=== PATIENT | male | born 1950 | race Caucasian/White ===

== ENCOUNTER 2017-11-26 06:09 | Outpatient (CLI) | payer MEDICARE, BC ==
[~2017-11-26] VITALS: Ht 177.8 cm; Wt 90.9 kg
--- NOTE | ~2017-11-26 | HEMODYNAMI ---
PATIENT:LEANNE VENTURA MEDICAL RECORD: [id number] : 48 LOCATION:[facility] ADMISSION DATE: 11/26/17 Generatedon:11/26/201716:03 Patient name: LEANNE VENTURA Patient #: [id number] SSN: DO B: 1950 Date of study: 11/26/2017 Page: Of Hemodynamic Procedure Report Patient Data Patient Demographics Procedure consent was obtained First Name: LEANNE Gender: Male Last Name: LORENZO : 1950 Patient #: [id number] Age: 67 year(s) Race: Unknown Additional ID: [id number] Contact details [address]: [address] [place] [address] State: [place] City: [place] Zip code: [address] Past Medical History Allergies: No known allergies Admission Admission Data Admission Date: 11/26/2017 Admission Time: 6:09 Height (in.): 5.1 BSA: 0.31 (m2) Height (cm.): 12.95 BMI: 5460.21 (kg/m2) Weight (lbs.): 202 Weight (kg.): 91.63 Lab Results Lab Result Date: 11/26/2017 Lab Result Time: 0:00 Biochemistry Name Units Result Min Max BUN mg/dl 16 --(---*)-- 7 18 Creatinine mg/dl 1.2 --(---*)-- 0.6 1.3 CBC Name Units Result Min Max Hemoglobin g/dl 14.6 --(-*--)-- 13.5 17.5 Procedure Procedure Types Cath Procedure Diagnostic Procedure LHC LHC w/Coronaries Miscellaneous Procedures Moderate Sedation up to 30 minutes Procedure Description Procedure Date Procedure Date: 11/26/2017 Procedure Start Time: 15:27 Procedure End Time: 16:03 Procedure Staff Name Function Yony Gongora MD Performing Physician Kizzy Boggs RT Monitor Pita Riddle RT Scrub Susan Banuelos RN Nurse Procedure Data Cath Procedure Fluoroscopy Diagnostic fluoroscopy Total fluoroscopy Time: 6.4 time: 6.4 min min Diagnostic fluoroscopy Total fluoroscopy dose: 885 dose: 885 mGy mGy Contrast Material Contrast Material Type Amount (ml) Isovue 300 78 Entry Location Entry Primary Successful Side Size Upsize Upsize Entry Closure Romero ccessful Closure Location (Fr) 1 (Fr) 2 (Fr) Remarks Device Remarks Radial Right 6 Fr Mechanical TR BAND artery Short Compression Femoral Right 5 Fr artery Estimated blood loss: 5 ml Diagnostic catheters Device Type Used For End Catheter Placement DIAGNOSTIC Adama 110cm Procedure 5Fr catheter ([id number]) MULTIPACK JL 4.0 5Fr Procedure catheter MULTIPACK 3DRC 5Fr Procedure catheter MULTIPACK Pigtail 5 Fr Procedure catheter DIAGNOSTIC IMT 5Fr Procedure Catheter ([id number]) MULTIPACK JL 4.0 5Fr Procedure catheter Procedure Complications No complications Procedure Medications Medication Administration Route Dosage 0.9% NaCl I.V. 100 ml/hr Oxygen NC 2 l/min Lidocaine 2% added to field 20 Heparin Flush Bag added to field 2 bags (1000units/500ml NS) Radial Cocktail added to field 1 syringe (Verapomil 2mg/Nitro 400mcg/Heparin 1500units) Fentanyl I.V. 50 mcg Versed I.V. 1 mg Versed I.V. 1 mg Fentanyl I.V. 50 mcg 0.9% NaCl I.V. bolus 250 ml Nitroglycerin IC/IA I.C. 50 mcg Hemodynamics Rest BSA: 0.31 (m2) HGB: 14.6 (g/dl) O2 Consumption: Estimated: 34.64 (ml/min) O2 Con sumption indexed: Estimated:111.74 (ml/min/m) Heart Rate: 59 (bpm) Pressure Samples Time Site Value (mmHg) Purpose Heart Use Rate(bpm) 15:40 LV 105/1,19 Snapshot 68 15:41 AO 109/56(72) Pullback 70 Gradients Valve Time Site Site 2 Mean SEP/DFP Peak To Heart Use 1 (mmHg) (sec/min) Peak Rate (mmHg) (bpm) Aortic 15:41 LV AO 7 18 70 109/56(72) Calculations Valve P-P Mean Valve Index Valve Source Name Gradient Area Flow (cm2) Aortic 7 7 Snapshots Pre Cath Intra NCS Post Cath Vital Signs Time Heart Resp SPO2 NIBP (mmHg) Rhythm Pain Sedation Rate (ipm) (%) Status Level (bpm) 15:14:23 54 16 98 137/74(98) NSR 0 (11) 10(A) , No pain 15:18:39 52 14 96 139/77(113) NSR 0 (11) 10(A) , No pain 15:22:57 56 16 95 129/69(92) NSR 0 (11) 10(A) , No pain 15:27:15 59 18 95 97/50(76) NSR 0 (11) 9(A) , No pain 15:31:22 72 16 96 73/49(62) NSR 0 (11) 9(A) , No pain 15:35:23 67 14 97 74/43(56) NSR 0 (11) 9(A) , No pain 15:40:12 65 16 95 115/56(84) NSR 0 (11) 10(A) , No pain 15:44:20 67 15 96 107/64(82) NSR 0 (11) 9(A) , No pain 15:48:28 66 14 96 112/64(89) NSR 0 (11) 9(A) , No pain 15:52:35 70 18 97 132/68(92) NSR 0 (11) 10(A) , No pain 15:56:51 76 21 96 121/71(85) NSR 0 (11) 10(A) , No pain 16:01:05 66 18 97 120/66(85) NSR 0 (11) 10(A) , No pain Medications Time Medication Route Dose Verified Delivered Reason Notes Effectiveness by by 15:13:38 0.9% NaCl I.V. 100ml/hr Yony Susan used for Rolan Banuelos commercial census taker 15:13:51 Oxygen NC 2 l/min Yony Susan Per Rolan Banuelos RN physician 15:14:00 Lidocaine 2% added 20ml Yony Yony for local to vial Rolan Gongora MD anesthetic field 15:14:07 Heparin Flush added 2 bags Yony Yony used for Bag to Rolan Gongora MD procedure (1000units/500ml field NS) 15:14:18 Radial Cocktail added 1 Yony Yony for (Verapomil to syringe Rolan Gongora MD vasodilation 2mg/Nitro field 400mcg/Heparin 1500units) 15:26:04 Fentanyl I.V. 50 mcg Yony Susan for sedation Rolan Banuelos RN 15:26:13 Versed I.V. 1 mg Yony Susan for sedation Rolan Banuelos RN 15:32:20 Versed I.V. 1 mg Yony Susan for sedation Rolan Banuelos RN 15:32:33 Fentanyl I.V. 50 mcg Yony Susan for sedation Rolan Banuelos RN 15:34:13 0.9% NaCl I.V. 250ml Yony Susan For bolus Rolan Banuelos RN hypotension 15:53:47 Nitroglycerin I.C. 50 mcg Yony Yony for IC/IA Rolan Gongora MD vasodilation Procedure Log Time Note 15:00:22 Pita Riddle RT(R) sent for patient. Start room use. 15:00:23 Time tracking: Regular hours 15:00:27 Plan of Care:Hemodynamics will remain stable., Cardiac rhythm will remain stable., Comfort level will be maintained., Respiratory function will remain adequate., Patient/ family verbilizes understanding of procedure., Procedure tolerated without complication., Recovers from procedure without complications.. 15:01:29 Patient Height : 5.1 inches 15:01:33 Patient Weight : 202 lbs 15:08:06 Patient received from Pre/Post Procedure Room to [facility] 2 Alert and oriented. Tansferred to table in Supine position. 15:08:07 Warm blankets applied, and reba hugger turned on for patient comfort. 15:08:08 Correct patient and procedure confirmed by team. 15:08:09 Signed procedure consent form obtained from patient. 15:08:11 ECG and BP/O2 sat monitors applied to patient. 15:13:22 Vital chart was started 15:13:38 0.9% NaCl 100ml/hr I.V. was administered by Susan Banuelos RN; used for procedure; 15:13:51 Oxygen 2 l/min NC was administered by Susan Banuelos RN; Per physician; 15:14:00 Lidocaine 2% 20ml vial added to field was administered by Yony Gongora MD; for local anesthetic; 15:14:07 Heparin Flush Bag (1000units/500ml NS) 2 bags added to field was administered by Yoyn Gongora MD; used for procedure; 15:14:18 Radial Cocktail (Verapomil 2mg/Nitro 400mcg/Heparin 1500units) 1 syringe added to field was administered by Yony Gongora MD; for vasodilation; 15:16:30 Baseline sample Acquired. 15:16:37 Rhythm: sinus bradycardia 15:16:39 Full Disclosure recording started 15:16:47 H&P Date Dictated: 11/25/2017 Within 30 days and on chart., H&P Addendum completed by physician on day of procedure. (MUST COMPLETE FOR ALL OUTPATIENTS). 15:16:48 Pre-procedure instructions explained to patient. 15:16:48 Pre-op teaching completed and patient verbalized understanding. 15:16:51 Family in patients room. 15:16:53 Patient NPO since Midnight. 15:16:59 Patient allergic to No known allergies 15:17:02 Is the patient allergic to Iodine/contrast media? No. 15:17:14 Is patient on blood thinner?No 15:17:19 Patient diabetic? No. 15:17:22 Previous problem with sedation/anesthesia? No ? 15:17:25 Snore? Yes 15:17:26 Sleep apnea? Yes 15:17:27 Deviated septum? No 15:17:29 Opens mouth fully? Yes 15:17:30 Sticks out tongue? Yes 15:17:37 Airway obstruction? No ? 15:17:50 Dentures? Yes DENTURES TIGHT 15:17:54 Modified Benson's test Ulnar < 7 seconds 15:17:57 Patient pain scale 0/10 ?. 15:18:11 IV patent on arrival in left hand with 0.9% NaCl at [facility]. 15:18:28 Lab results completed and on chart. 15:18:31 Right Radial & Right Groin area was prepped with chlora-prep and draped in sterile fashion 15:18:33 Alarms reviewed by R. N. 15:18:33 Sharps counted by scrub and verified by R.N. 15:19:32 Use device set Radial Dx or PCI 15:19:33 ACIST Syringe (73328) opened to sterile field. 15:19:36 ACIST Manifold (70992) opened to sterile field. 15:19:36 ACIST Hand Control (45161) opened to sterile field. 15:19:37 Tegaderm 4 x 4 (1626W) opened to sterile field. 15:19:53 NEEDLE Cook 21G 4cm Radial ([id number]) opened to sterile field. 15:19:55 Medline Cath Pack ([id number]) opened to sterile field. 15:19:56 Bag Decanter (2002) opened to sterile field. 15:19:57 SHEATH 6FR Slender ([id number]) opened to sterile field. 15:19:58 DIAGNOSTIC WIRE .035 260cm J wire (006374) opened to sterile field. 15::45 Lab Result : Creatinine 1.2 mg/dl 15:: Lab Result : BUN 16 mg/dl 15:: Lab Result : Hemoglobin 14.6 g/dl 15:: --------ALL STOP TIME OUT------ :: Final Timeout: patient, procedure, and site verified with staff and physician. All members of the team are in agreement. 15:25:06 Right Radial & Right Groin site verified by team. 15:25: Physical assessment completed. ASA score P 2 - A patient with mild systemic disease as per Yony Gongora MD. 15:25:12 Sedation plan: IV Moderate Sedation Medication:Versed, Fentanyl 15::04 Fentanyl 50 mcg I.V. was administered by Susan Banuelos RN; for sedation; 15::13 Versed 1 mg I.V. was administered by Susan Banuelos RN; for sedation; 15:27:02 Procedure started. 15:27:33 Local anesthetic to right radial artery with Lidocaine 2% by Yony Gongora MD.INITIAL ACCESS ONLY 15:28:22 Zero performed for pressure channel P1 15:28:47 A 6 Fr Short sheath was inserted into the Right Radial artery 15:29:09 A DIAGNOSTIC Adama 110cm 5Fr catheter (685846) was advanced over the wire and used for Procedure. 15:31:19 Catheter removed. 15:31:36 UNABLE TO ADVANCE CATHETER. WILL GO FEMORAL 15:31:45 SHEATH 5FR [place] (JQW808) opened to sterile field. 15:31:52 NEEDLE [place] 18G 7cm Percutaneous Entry needle (H52213) opened to sterile field. 15:32:03 Use device set Femoral Dx 15:32:16 DIAGNOSTIC Multipack 5Fr catheter set (TZ8765) opened to sterile field. 15:32:20 Versed 1 mg I.V. was administered by Susan Banuelos RN; for sedation; 15:32:33 Fentanyl 50 mcg I.V. was administered by Susan Banuelos RN; for sedation; 15:33:09 Local anesthetic to right femoral artery with Lidocaine 2% by Yony Gongora MD.ADDITIONAL ACCESS 15:33:35 A 5 Fr sheath was inserted into the Right Femoral artery 15:34:13 0.9% NaCl 250ml I.V. bolus was administered by Susan Banuelos RN; For hypotension; 15:34:25 A MULTIPACK JL 4.0 5Fr catheter was advanced over the wire and used for Procedure. 15:35:00 LCA angiography performed. 15:37:14 Catheter removed. 15:37:39 A MULTIPACK 3DRC 5Fr catheter was advanced over the wire and used for Procedure. 15:38:48 RCA angiography performed. 15:39:06 Catheter removed. 15:39:24 A MULTIPACK Pigtail 5 Fr catheter was advanced over the wire and used for Procedure. 15:40:17 LV gram done using WOODY 15:40:22 Injector settings: Ml/sec: 10, Volume: 20, 15:41:30 EF : 60 % 15:41:35 LV hemodynamics recorded. 15:41:47 Catheter removed. 15:43:11 A DIAGNOSTIC IMT 5Fr Catheter ([id number]) was advanced over the wire and used for Procedure. 15:44:21 WEBSTER ANGIOGRAPHY VISUALIZED WITH IMT CATHETER 15:44:49 Catheter removed. 15:45:03 EXOSEAL 5Fr (EX500) opened to sterile field. 15:45:08 TR BAND Standard ([id number]) opened to sterile field. 15:51:31 A MULTIPACK JL 4.0 5Fr catheter was advanced over the wire and used for Procedure. 15:53:47 Nitroglycerin IC/IA 50 mcg I.C. was administered by Yony Gongora MD; for vasodilation; 15:55:52 Catheter removed. 15:57:03 Sheath removed intact; hemostasis achieved with to the Right Femoral artery. 15:57:22 Sheath removed intact; hemostasis achieved with Mechanical Compression to the Right Radial artery. 15:57:25 Procedure ended.(Physican Out) 15:57:29 Fluoroscopy time 06.40 minutes. 15:57:36 Fluoroscopy dose: 885 mGy 15:57:36 Flurop Dose total: 885 15:57:58 Contrast amount:Isovue 300 78ml. 15:57:59 Sharps counted by scrub and verified by R.N. 15:58:03 TR band inflated with 10cc of air. 15:58:08 Insertion/operative site no bleeding no hematoma. 15:58:30 Post-op/insertion site Right Femoral artery dressed using a 4 x 4 and Tegaderm. 15:58:36 Post right femoral artery:stable, soft, clean and dry 15:58:45 Post-procedure physical assessment completed. ASA score P 2 - A patient with mild systemic disease as per Yony Gongora MD. 15:58:48 Post procedure rhythm: unchanged. 15:58:51 Estimated blood loss: 5 ml 15:58:52 Post procedure instruction explained to patient.Patient verbalizes understanding. 15:58:53 Patient needs reinforcement of post procedure teaching. 15:59:03 Procedure type changed to Cath procedure, Diagnostic procedure, LHC, LHC w/Coronaries, Miscellaneous Procedures, Moderate Sedation up to 30 minutes 15:59:58 Procedure and supply charges have been captured, reviewed, submitted and are correct. 16:00:01 Procedure Complication : No complications 16:02:12 Vital chart was stopped 16:02:12 See physician's report for complete and final results. 16:02:16 Report given to Pre/Post Procedure Room. 16:02:19 Patient transfered to Pre/Post Procedure Room with Bed. 16:03:12 Procedure ended. 16:03:12 Full Disclosure recording stopped 16:03:21 End room use (Document Last) Device Usage Item Name Manufacture Quantity Catalog Number Hospital Part Current Mini mal Lot# / Charge Number Stock Stock Serial# Code ACIST Acist 1 84595 370339 441028 703130 20 Syringe Medical (66388) Systems Inc ACIST Acist 1 44767 239853 597411 653647 5 Manifold Medical (45378) Systems Inc ACIST Hand Acist 1 35640 395852 700030 739849 5 Control Medical (92256) Systems Inc Tegaderm 4 x 3M 1 1626W 049513 326355 556886 5 4 (1626W) NEEDLE Cook Cook Medical 1 E93509 981418 178839 033790 5 21G 4cm Radial (W69309) Medline Cath Cardinal 1 [id number] 922778 92624 011152 5 Pack Health ([id number]) Bag Decanter Microtek 1 2001S 025410 56780 343607 5 () Medical Inc. SHEATH 6FR Terumo 1 [id number] 240677 330777 634031 40 Slender ([id number]) DIAGNOSTIC St Sukhdev 1 423033 323916 317949 494500 30 WIRE .035 260cm J wire (247441) DIAGNOSTIC Terumo 1 40-5023 308864 995846 503916 5 Adama 110cm 5Fr catheter (788532) SHEATH 5FR Terumo 1 ORZ832 870783 239694 704778 40 [place] (IXO348) NEEDLE Cook [place] Medical 1 Z00273 441188 76071 156659 5 18G 7cm Percutaneous Entry needle (O26604) DIAGNOSTIC Cardinal 1 PM8880 392434 71650 819461 30 Multipack Health 5Fr catheter set (DI3523) MULTIPACK JL Cardinal 1 614417 5 4.0 5Fr Health catheter MULTIPACK Cardinal 1 818768 5 3DRC 5Fr Health catheter MULTIPACK Cardinal 1 788762 5 Pigtail 5 Fr Health catheter DIAGNOSTIC [place] 1 [id number] 834404 060555 75595 5 IMT 5Fr Scientific Catheter ([id number]) EXOSEAL 5Fr Cardinal 1 EX500 648263 796589 164711 10 (EX500) Health TR BAND Terumo 1 [id number] 525088 240026 387074 40 Standard (IBQ52MML) Signature Audit [place] [facility] Time Signature Unsigned Intra-Procedure 11/26/2017 Kizzy Boggs 4:03:50 PM RT(R) Signatures Monitor : Kizzy Boggs Signature : RT Date : Time : [facility] [address] [place] [address]
[2017-11-26] MEDS ORDERED: CELEXA40 MG PO (06:15)
[2017-11-26] MEDS ORDERED: PRAVACHOL40 MG PO (06:15)
[2017-11-26] MEDS ORDERED: WELLBUTRIN XL150 M1 PO (06:16)
[2017-11-26] MEDS ORDERED: FLOMAX0.4 MG PO (06:16)
[2017-11-26] MEDS ORDERED: OMEPRAZOLE20 M1 PO (06:16)
[2017-11-26] MEDS ORDERED: AVODART0.5 MG PO (06:16)
[2017-11-26 06:35] VITALS: BP 142/76; Ht 177.8 cm; Wt 90.9 kg
[2017-11-26 06:43] LABS: ANION GAP 11.1 mmol/L (8-16); CALCIUM 8.7 mg/dL (8.5-10.1); CREATININE - SERUM 1.2 mg/dL (0.6-1.3); POTASSIUM - SERUM 4.1 mmol/L (3.5-5.1)
[2017-11-26 06:47] LABS: BASOPHILS 0.3 % (0-2); EOSINOPHILS 1.5 % (0-7); HEMATOCRIT 43.6 % (42.0-54.0); HEMOGLOBIN 14.6 g/dL (13.5-17.5); IMMATURE GRANULOCYTES 0.5 % (0-5); LYMPHOCYTES 21.9 % (15-50); MCH 32.4 pg (26.0-34.0); MCHC 33.5 g/dL (31.0-37.0); MCV 96.9 fL (80.0-100.0); MEAN PLATELET VOLUME 11.2 fL (7.4-10.4); MONOCYTES 10.2 % (2-11); NEUTROPHILS 65.6 % (40-80); PLATELET COUNT 222 10x3/uL (130-400); RDW 12.3 % (11.5-14.5); WBC 6.7 10x3/uL (4.8-10.8)
== END 2017-11-26 18:27 | disposition home or self-care (01) ==
LOC: D.CATH 06:09
PROVIDERS: Internal Medicine Cardiovascular Disease
DX: I20.0 Unstable angina (principal); R06.02 Shortness of breath; R07.9 Chest pain, unspecified; Z01.812 Encounter for preprocedural laboratory examination

== ENCOUNTER → 2017-11-30 15:39 | Outpatient (CLI) | payer MEDICARE, BC ==
[2017-11-26 06:35] VITALS: BMI 28.7
[~2017-11-30 15:39] MED LIST: AVODART0.5 MG PO; CELEXA40 MG PO; CORDARONE200 MG PO; FLOMAX0.4 MG PO; HEMOCYTE PLUS C1 CAP PO; HYDROCODONE-APA1 TAB PO; LOPRESSOR25 MG PO; OMEPRAZOLE20 M1 PO; PRAVACHOL40 MG PO; WELLBUTRIN XL150 M1 PO
[2017-12-02 07:25] LABS: HEPATITIS C ANTIBODY 0.1 (0.0-0.9)
== END | disposition home or self-care (01) ==
LOC: D.US 15:30
PROVIDERS: Internal Medicine Cardiovascular Disease
DX: R09.89 Other specified symptoms and signs involving the circulatory and respiratory systems (principal); Z01.812 Encounter for preprocedural laboratory examination; Z01.810 Encounter for preprocedural cardiovascular examination

== ENCOUNTER 2017-12-07 05:00 | Inpatient (IN) | payer MEDICARE, BC ==
[2017-12-04 10:33] LABS: BASOPHILS 0.2 % (0-2); EOSINOPHILS 0.9 % (0-7); HEMATOCRIT 45.6 % (42.0-54.0); HEMOGLOBIN 15.5 g/dL (13.5-17.5); IMMATURE GRANULOCYTES 0.3 % (0-5); LYMPHOCYTES 23.5 % (15-50); MCH 32.7 pg (26.0-34.0); MCV 96.2 fL (80.0-100.0); MEAN PLATELET VOLUME 11.1 fL (7.4-10.4); MONOCYTES 9.7 % (2-11); NEUTROPHILS 65.4 % (40-80); PLATELET COUNT 237 10x3/uL (130-400); RBC 4.74 10x6/uL (4.20-6.10); WBC 6.6 10x3/uL (4.8-10.8)
[2017-12-04 10:42] LABS: INR 0.98 (0.85-1.17); PROTIME 12.6 SECONDS (11.6-15.0)
[2017-12-04 10:43] LABS: APTT 33.1 SECONDS (22.8-39.4)
[2017-12-04 10:46] LABS: APPEARANCE CLEAR (CLEAR); COLOR YELLOW (YELLOW)
[2017-12-04 10:47] LABS: BILIRUBIN NEGATIVE (NEGATIVE); GLUCOSE NEGATIVE (NEGATIVE); KETONE NEGATIVE (NEGATIVE); NITRITE NEGATIVE (NEGATIVE); PROTEIN NEGATIVE (NEGATIVE); UROBILINOGEN NORMAL (NORMAL)
[2017-12-04 10:56] LABS: ALBUMIN 3.5 g/dL (3.4-5.0); ANION GAP 11.9 mmol/L (8-16); BILIRUBIN - TOTAL 0.46 mg/dL (0.2-1.3); CALCIUM 8.8 mg/dL (8.5-10.1); CARBON DIOXIDE 27.3 mmol/L (21.0-32.0); CREATININE - SERUM 1.2 mg/dL (0.6-1.3); PHOSPHOROUS 2.6 mg/dL (2.5-4.9); POTASSIUM - SERUM 4.2 mmol/L (3.5-5.1); PROTEIN - SERUM 7.3 g/dL (6.4-8.2); THYROID STIMULATING HORMONE 1.23 uIU/mL (0.36-3.74); URIC ACID 5.8 mg/dL (2.6-7.2)
[2017-12-04 10:57] LABS: HEMOGLOBIN A1C 6.1 % (4.8-6.0)
[2017-12-04 12:21] LABS: T4 THYROXIN - FREE 0.73 ng/dL (0.76-1.46)
[2017-12-04 13:10] LABS: COLD SCREEN @ 4 DEGREES NEGATIVE (NEGATIVE); COLD SCREEN ROOM TEMP NEGATIVE (NEGATIVE)
[2017-12-07] VITALS (41 sets, daily range): BP systolic 90–153; BP diastolic 45–76; BMI 28.9; BMI 30.4
[~2017-12-07] VITALS: Ht 177.8 cm; Wt 93.9 kg
--- NOTE | ~2017-12-07 | HP ---
PATIENT: LEANNE VENTURA MEDICAL RECORD: [id number] ACCOUNT: [id number] LOCATION:[facility] : 48 ADMISSION DATE: 12/07/17 HISTORY AND PHYSICAL EXAMINATION NameLEANNE VENTURA (67yo, M) ID# [id number]. Date/Time11/30/2017 02:44PREXV1949Service Dept.NPP_[facility] ClinicProviderEDMAIDA KENT MDInsuranceMed Primary[place] Insurance # : [id number] Referring Provider Name : SARA ESTRADA Employer Name : RETIRED Med Secondary[place]) Insurance # : [id number] Policy/Group # : [id number] Employer Name : RETIRED Prescription: DSTPSDIR - Member is eligible. Chief Complaint Coronary artery disease eval for CABG Patient's Care Team Referring Provider (): SARA ESTRADA: [address] [place] [address], , Insurance Examining Clerk: MADDI JACOBS: [address] [place] [address], , Patient's Pharm[facility] ([facility] [address] [facility] [address], , Vitals BP:142/92 sitting L arm 11/30/2017 02:17 pm 148/86 sitting R arm 11/30/2017 02:18 pmBP Cuff Size:adult 11/30/2017 02:17 pm adult 11/30/2017 02:18 pmHR:64,reg 11/30/2017 02:18 pmHt:5 ft 10 in 11/30/2017 02:19 pmWt:201 lbs 11/30/2017 02:20 pmNotes:fatigue is biggest complaint 11/30/2017 02:20 pmBMI:28.8 11/30/2017 02:20 pmAllergies Reviewed Allergies NKDAMedications Reviewed Medications buPROPion HCl XL 150 mg 24 hr tablet, extended release TAKE ONE TABLET BY MOUTH ONCE DAILY10/27/17 filledsurescriptscitalopram 40 mg tablet TAKE ONE TABLET BY MOUTH EVERY DAY09/28/17 filledsurescriptsJalyn 0.5 mg-0.4 mg capsule, extended release Take 1 capsule(s) every day by oral route.11/30[facility] Take 1 tablet(s) every day by oral route.11/30/17 [facility] WilsonPriLOSEC 20 mg capsule,delayed release Take 1 capsule(s) every day by oral route.11/30/17 [facility] WilsonProblems Reviewed Problems Coronary arteriosclerosis - Onset: 11/30/2017 Family History Discussed Family History Mother- Cerebrovascular accidentSocial History Discussed Social History Cardiology HISTORY AND PHYSICAL [id number] LEANNE VENTURA Family history of heart disease?: N Smoking Status: Former smoker (Notes: quit 1969) High Cholesterol: Y High blood pressure: N Overweight: Y Obese: N Diet: Regular Surgical History Reviewed Surgical History cholecystectomy, tonsillectomy and adenoidectomy, vasectomy, trigger finger release, wrist surgery Past Medical History Discussed Past Medical History Blurred Vision: Y Chest Pain: Y Circulation Problems: Y Coronary Artery Disease: Y Depression: Y High Blood Pressure: Y Hyperlipidemia: Y Irregular heart beat: Y Shortness of Breath: Y Notes: sleep apnea. kidney/bladder/prostate problems. Documents for Discussion N/A Screening None recorded. HPI Coronary Artery Disease F/U Reported by patient. Severity: symptoms are worsening; chest discomfort with household activities/yard work Context: non-smoker Associated Symptoms: fatigue coronary atherosclerosis and angina pectoris ROS Patient reports exercise intolerance but reports no fever, no night sweats, no significant weight gain, and no significant weight loss. He reports no dry eyes, no ir ritation, and no vision change. He reports no difficulty hearing and no ear pain. He reports no frequent nosebleeds and no nose/sinus problems. He reports no sore throat, no bleeding gums, no snoring, no dry mouth, no mouth ulcers, no oral abnormalities, a nd no teeth problems. He reports no jugular vein distension and no swollen glands. He reports no chest pain, no arm pain on exertion, no shortness of breath when walking, no shortness of breath when lying down, no palpitations, and no known heart murmur. H e reports no cough, no wheezing, no shortness of breath, and no coughing up blood. He reports no abdominal pain, no vomiting, normal appetite, no diarrhea, not vomiting blood, no nausea, and no constipation. He reports no incontinence, no difficulty urina t ing, no hematuria, and no increased frequency. He reports no muscle aches, no muscle weakness, no arthralgias/joint pain, no back pain, and no swelling in the extremities. He reports no abnormal mole, no jaundice, and no rashes. He reports no loss of cons c iousness, no weakness, no numbness, no seizures, no dizziness, and no headaches. He reports no depression, no sleep disturbances, feeling safe in relationship, and no alcohol abuse. He reports no fatigue. He reports no swollen glands and no bruising. He r eports no runny nose, no sinus pressure, no itching, no hives, and no frequent sneezing. HISTORY AND PHYSICAL [id number] LEANNE VENTURA as noted in the HPI Physical Exam Patient is a 67-year-old male. Constitutional: General Appearance well nourished and developed and healthy-appearing. Level of Distress NAD. Ambulation ambulating normally. Cardiovascular: Apical Impulse not displaced or no thrill. Heart Auscultation normal s1 and s2; no murmurs, rubs, or gallops; and RRR. Arterial Pulses no abdominal aorta bruits, femoral bruits, or popliteal bruits and 2+ bilateral, carotid 2+ bilateral, femoral 2+ bilateral, popliteal 2+ bilateral, and dorsalis pedis 2+ bilateral. Edema no edema or varicosities. Lungs: Repiratory Effort no dyspnea. Percussion no hyperresonance or dullness or flatness. Auscultation no wheezing, rhonchi, or rales / crackles and breathing sounds normal, good air movement, and CTA except as noted. Abdomen: Bowl Sounds normal. Inspection and Palpation no tend erness, guarding, masses, or rebound tenderness and soft and non-distended. Liver non-tender and no hepatomegaly. Spleen non-tender and no splenomegaly. Hernia none palpable. Musculoskeletal System: Gait And Stance normal gait and stance. Digits and Nails normal nails and no cyanosis. Neurologic: Cranial Nerves grossly intact. Reflexes DTRs 2+ bilaterally throughout. Sensation grossly intact. Lymph Nodes: Lymph Nodes no cervical LAD, supraclavicular LAD, axillary LAD, or inguinal LAD. Eyes: Lids and Conjunctivae no discharge or pallor and non-injected. Pupils PERRLA. Cornea grossly intact. EOM EOMI. Lens clear. Sclerae non-icteric. Neck: Neck no masses, enlarged lymph nodes, or carotid bruits and supple and trachea midline. Thyroid no enlargement or nodules and non-tender. Skin: Inspection and Palpation no rash, lesions, ulcers, jaundice, or abnormal nevi. Assessment / Plan left main coronary artery atherosclerosis with angina 1. Coronary arteriosclerosis I25.10: Atherosclerotic heart disease of [place] coronary artery without angina pectoris Discussion Notes I have discussed the patient's disease process with him in detail as well as the alternative methods of treatment we discussed coronary artery bypass including the expected benefits and risk which included bleeding, infection, stroke, , and they imponderables. He understands all of the above and wishes to proceed with planned surgery HISTORY AND PHYSICAL [id number] LEANNE VENTURA EDWARD MD at 1319 CC: [id number] DICTATION DATE: 11/30/17 1400 DISTRIBUTION SYSTEMS SUPERINTENDENT: LIBRADO 12/01/17 0813 PRE [address] [place] [address] [place] [address]
--- NOTE | ~2017-12-07 | OP ---
PATIENT NAME: LEANNE VENTURA MEDICAL RECORD: [id number] :48 LOCATION:[facility].CV05 ADMISSION DATE:12/07/17 SURGEON: ROLY HOPKINS MD DATE OF OPERATION: 12/07/2017 SURGEON: Roly Hopkins MD ANESTHESIA: General endotracheal, Spencer Rose MD OPERATION PERFORMED: Coronary artery bypass; 1. Left internal thoracic to left anterior descending. 2. Reverse saphenous vein graft to the first diagonal. 3. Reverse saphenous vein graft to the obtuse marginal 1 coronary artery. PREOPERATIVE DIAGNOSES: Angina pectoris, left main coronary artery lesion. POSTOPERATIVE DIAGNOSES: Angina pectoris, left main coronary artery lesion. INDICATION FOR OPERATION: Angina pectoris. FINDINGS OF THE OPERATION: The left internal thoracic and greater saphenous vein were of good quality for grafting. The target vessels were also of good quality for grafting. ESTIMATED BLOOD LOSS: Cell Saver was used. DESCRIPTION OF PROCEDURE: After informed consent, adequate preoperative medication, and evaluation, the patient was brought to the operating room and placed on the table in supine position. After induction of general endotracheal anesthesia and application of appropriate monitoring devices, chest, neck, abdomen, and both legs were prepped and draped in sterile field utilizing Betadine scrub, alcohol, and Betadine solution. Betadine-impregnated drape was also used. Saphenous vein was harvested from right thigh and prepared for reverse saphenous vein graft. The leg was closed over drains utilizing 3-0 Vicryl and skin maria isabel. A median sternotomy incision was used and dissection was carried down to the fascia. Hemostasis was maintained with electrocautery. Sternum was divided. Innominate vein was identified and protected. Left internal thoracic was taken down and prepared for grafting. The patient was given a calculated dose of heparin, cannulated in the standard fashion utilizing one aortic, one 2-stage cannula in the atrium and the inferior vena cava. The patient was placed on cardiopulmonary bypass, cooled to 27 degrees centigrade. A crossclamp was placed just proximal to the aortic cannula and the patient was given cardioplegic solution through the aortic root. The patient was given a warm induction and cold maintenance. The patient was given cold intermittent cardioplegic solution throughout the procedure through the grafts, through the root, or combination of both. The first vessel to be grafted was the obtuse marginal 1. It was grafted end-to-side utilizing a running 7-0 Prolene suture. Graft was measured back to the aorta and the proximal anastomosis was fashioned utilizing running 6-0 Prolene suture. Next, the first diagonal was grafted end-to-side utilizing running 8-0 Prolene suture. Graft was measured back to the aorta and a proximal anastomosis was fashioned utilizing running 6-0 Prolene suture. Next, the left internal thoracic was brought through a hole in the pericardium OPERATIVE REPORT [id number] LEANNE VENTURA and sutured left anterior descending end-to-side utilizing a running 8-0 Prolene suture. Pedicle was attached to epicardium with 6-0 Prolene suture. All maneuvers to remove trapped air were performed. The patient was given warm cardioplegic reperfusion and controlled reperfusion. The patient was rewarmed to 37 degrees centigrade. Two atrial and two ventricular pacing wires were placed on the heart and brought out through the epigastric area. The patient was weaned off cardiopulmonary bypass. After being stable off bypass, he was given calculated dose of protamine to reverse the heparin. Hemostasis was achieved. A #40 right angle and #36 chest tubes were brought in through the epigastric area and placed in mediastinum. Chest was again irrigated. Instrument count and sponge count were correct times 2. Chest was closed in layers utilizing #7 wire on sternum, #2 Vicryl on linea alba and pectoralis fascia. Subcutaneous tissue was approximated with 3-0 Vicryl and skin was approximated with 3-0 subcuticular Vicryl. Sterile dressings were applied. The patient tolerated the procedure well and was transferred to cardiovascular recovery in stable condition. TRANSINT:[id number] Voice Confirmation ID: [id number] DOCUMENT ID: [id number] ROLY HOPKINS MD at 1117 CC: [id number] DICTATION DATE: 12/07/17 1418 DIE DESIGNER: 12/07/17 1814 [facility] [place] [id number] [place] [id number]
--- NOTE | ~2017-12-07 | TEE ---
PATIENT:LEANNE VENTURA MEDICAL RECORD: [id number] LOCATION:[place] [address] AGE OF PATIENT: 67 ADMISSION DATE: 12/07/17 SEX: M REFERRING PHYSICIAN: INTERPRETING PHYSICIAN: OSBALDO AMAYA MD TRANSESOPHAGEAL ECHOCARDIOGRAM CHIKA CHARGE Y INDICATIONS: CABG PREMEDICATIONS: PATIENT'S RESPONSE PROCEDURE DOPPLER MEASUREMENTS: LVIT LA PA RA LVOT RVOT Asc. Ao AV Gradient Peak AV Mean AV Area MV Gradient Peak MV Mean MV Area INTERPRETATION: LVd: 5.6 cm LVs: 3.9 cm Doppler: 2-D: COLOR FLOW DOPPLER NORMAL SALINE STUDY: MISCELLANOUS: DIAGNOSIS: PLAN: Senior Technical Support Analyst:2 Dr. [employer] Rep: Meir SAGE COMMENTS: DATE OF SERVICE: 12/07/2017 Transesophageal echo evaluation of valvular structures during bypass surgery. FINDINGS: 1. Left ventricular chamber size is within normal limits. Left ventricular systolic function is normal. Overall ejection fraction estimated at 55%. 2. Left atrium, right atrium, and right ventricular chamber sizes are within normal limits. TRANSESOPHAGEAL ECHOCARDIOGRAM REPORT [id number] LEANNE VENTURA 3. Valvular structures have normal structure and motion. 4. Doppler interrogation reveals trace mitral regurgitation, mild tricuspid regurgitation, no other valvular insufficiency or stenosis. 5. No evidence of pericardial effusion or left ventricular thrombus. TRANSINT:[id number] Voice Confirmation ID: [id number] DOCUMENT ID: [id number] at 1324 CC: [id number] DICTATION DATE: 12/08/17 0948 PACKER DENTURE: 12/08/17 1610 ADM IN [place] [id number] [place] [address]
[~2017-12-07 05:00] MED LIST changes: -CORDARONE200 MG PO; -HEMOCYTE PLUS C1 CAP PO; -HYDROCODONE-APA1 TAB PO; -LOPRESSOR25 MG PO
[2017-12-07 08:27] LABS: PLT FUNCT.(P2Y12) PLAVIX 260 PRU (194-418)
[2017-12-07 13:47] LABS: HEMATOCRIT 34.6 % (42.0-54.0); HEMOGLOBIN 11.7 g/dL (13.5-17.5); MCH 32.5 pg (26.0-34.0); MCHC 33.8 g/dL (31.0-37.0); MCV 96.1 fL (80.0-100.0); RBC 3.6 10x6/uL (4.20-6.10); WBC 16.4 10x3/uL (4.8-10.8)
[2017-12-07 14:07] LABS: CALC OSMOLALITY 285 mosm/kg (275-300); CALCIUM 7.4 mg/dL (8.5-10.1); CARBON DIOXIDE 21.2 mmol/L (21.0-32.0); CHLORIDE - SERUM 107 mmol/L (98-107); GLUCOSE 189 mg/dL (74-106); POTASSIUM - SERUM 4.9 mmol/L (3.5-5.1); SODIUM 140 mmol/L (136-145); UREA NITROGEN 18 mg/dL (7-18); eGFR NON AFRICAN AMERICAN 79 mL/min (90-120)
[2017-12-07 14:12] LABS: APTT 35.3 SECONDS (22.8-39.4); INR 1.27 (0.85-1.17); PROTIME 15.5 SECONDS (11.6-15.0)
[2017-12-08] VITALS (83 sets, daily range): BP systolic 106–139; BP diastolic 50–69; Ht 177.8 cm; Wt 93.9 kg
[2017-12-08 06:01] LABS: HEMATOCRIT 30.7 % (42.0-54.0); MCH 31.8 pg (26.0-34.0); MCHC 32.6 g/dL (31.0-37.0); MCV 97.8 fL (80.0-100.0); MEAN PLATELET VOLUME 10.6 fL (7.4-10.4); RBC 3.14 10x6/uL (4.20-6.10); RDW 12.6 % (11.5-14.5); WBC 16.1 10x3/uL (4.8-10.8)
[2017-12-08 06:30] LABS: ALBUMIN 3.7 g/dL (3.4-5.0); ANION GAP 10.2 mmol/L (8-16); BILIRUBIN - TOTAL 0.98 mg/dL (0.2-1.3); CALCIUM 7.8 mg/dL (8.5-10.1); POTASSIUM - SERUM 4.6 mmol/L (3.5-5.1); PROTEIN - SERUM 5.9 g/dL (6.4-8.2)
[2017-12-08 06:31] LABS: CARBON DIOXIDE 27.4 mmol/L (21.0-32.0); CREATININE - SERUM 1.3 mg/dL (0.6-1.3)
[2017-12-09] VITALS (35 sets, daily range): BP systolic 102–144; BP diastolic 43–74
[2017-12-09 06:27] LABS: HEMATOCRIT 28.9 % (42.0-54.0); HEMOGLOBIN 9.3 g/dL (13.5-17.5); MCH 32.1 pg (26.0-34.0); MCHC 32.2 g/dL (31.0-37.0); MCV 99.7 fL (80.0-100.0); MEAN PLATELET VOLUME 10.9 fL (7.4-10.4); RBC 2.9 10x6/uL (4.20-6.10); RDW 12.9 % (11.5-14.5); WBC 15.1 10x3/uL (4.8-10.8)
[2017-12-09 06:48] LABS: ALBUMIN 3.3 g/dL (3.4-5.0); BILIRUBIN - TOTAL 0.72 mg/dL (0.2-1.3); CALCIUM 8.1 mg/dL (8.5-10.1); CARBON DIOXIDE 28.8 mmol/L (21.0-32.0); CREATININE - SERUM 1.4 mg/dL (0.6-1.3); POTASSIUM - SERUM 4.8 mmol/L (3.5-5.1); PROTEIN - SERUM 5.9 g/dL (6.4-8.2)
[2017-12-10] VITALS (24 sets, daily range): BP systolic 93–142; BP diastolic 49–73
[2017-12-10 06:04] LABS: HEMATOCRIT 26.6 % (42.0-54.0); HEMOGLOBIN 8.6 g/dL (13.5-17.5); MCH 32.2 pg (26.0-34.0); MCHC 32.3 g/dL (31.0-37.0); MCV 99.6 fL (80.0-100.0); MEAN PLATELET VOLUME 10.5 fL (7.4-10.4); RBC 2.67 10x6/uL (4.20-6.10); RDW 12.8 % (11.5-14.5)
[2017-12-10 06:10] LABS: WBC 9.3 10x3/uL (4.8-10.8)
[2017-12-10 06:20] LABS: ALBUMIN 2.9 g/dL (3.4-5.0); ANION GAP 9.2 mmol/L (8-16); BILIRUBIN - TOTAL 0.72 mg/dL (0.2-1.3); CALCIUM 8.2 mg/dL (8.5-10.1); CARBON DIOXIDE 32.8 mmol/L (21.0-32.0); CREATININE - SERUM 1.3 mg/dL (0.6-1.3); PROTEIN - SERUM 5.8 g/dL (6.4-8.2)
[2017-12-11] VITALS (23 sets, daily range): BP systolic 110–157; BP diastolic 47–81
[2017-12-11 06:58] LABS: ALBUMIN 2.8 g/dL (3.4-5.0); ANION GAP 5.9 mmol/L (8-16); BILIRUBIN - TOTAL 0.52 mg/dL (0.2-1.3); CALCIUM 7.9 mg/dL (8.5-10.1); CARBON DIOXIDE 35.2 mmol/L (21.0-32.0); CREATININE - SERUM 1.2 mg/dL (0.6-1.3); PROTEIN - SERUM 5.9 g/dL (6.4-8.2)
[2017-12-11 06:59] LABS: POTASSIUM - SERUM 4.1 mmol/L (3.5-5.1)
[2017-12-11 07:05] LABS: HEMATOCRIT 25.7 % (42.0-54.0); HEMOGLOBIN 8.2 g/dL (13.5-17.5); MCH 31.7 pg (26.0-34.0); MCHC 31.9 g/dL (31.0-37.0); MCV 99.2 fL (80.0-100.0); MEAN PLATELET VOLUME 10.6 fL (7.4-10.4); RBC 2.59 10x6/uL (4.20-6.10); RDW 12.7 % (11.5-14.5); WBC 8.3 10x3/uL (4.8-10.8)
[2017-12-12] VITALS (20 sets, daily range): BP systolic 98–142; BP diastolic 55–76
[2017-12-12 06:03] LABS: HEMATOCRIT 26.3 % (42.0-54.0); HEMOGLOBIN 8.6 g/dL (13.5-17.5); MCH 32.1 pg (26.0-34.0); MCHC 32.7 g/dL (31.0-37.0); MCV 98.1 fL (80.0-100.0); MEAN PLATELET VOLUME 9.9 fL (7.4-10.4); RBC 2.68 10x6/uL (4.20-6.10); RDW 12.8 % (11.5-14.5); WBC 8.6 10x3/uL (4.8-10.8)
[2017-12-12 06:29] LABS: ALBUMIN 2.7 g/dL (3.4-5.0); ANION GAP 9.6 mmol/L (8-16); BILIRUBIN - TOTAL 0.39 mg/dL (0.2-1.3); CALCIUM 8.2 mg/dL (8.5-10.1); CREATININE - SERUM 1.1 mg/dL (0.6-1.3); POTASSIUM - SERUM 3.6 mmol/L (3.5-5.1); PROTEIN - SERUM 5.8 g/dL (6.4-8.2)
[2017-12-13] VITALS (17 sets, daily range): BP systolic 104–132; BP diastolic 54–74
[2017-12-13 06:06] LABS: HEMATOCRIT 28.4 % (42.0-54.0); HEMOGLOBIN 9.3 g/dL (13.5-17.5); MCH 31.6 pg (26.0-34.0); MCHC 32.7 g/dL (31.0-37.0); MCV 96.6 fL (80.0-100.0); MEAN PLATELET VOLUME 9.9 fL (7.4-10.4); RBC 2.94 10x6/uL (4.20-6.10); WBC 9.9 10x3/uL (4.8-10.8)
[2017-12-13 06:22] LABS: ALBUMIN 2.7 g/dL (3.4-5.0); ALKALINE PHOSPHATASE 49 U/L (46-116); ALT (SGPT) 40 U/L (10-68); BILIRUBIN - TOTAL 0.48 mg/dL (0.2-1.3); CALC OSMOLALITY 279 mosm/kg (275-300); CALCIUM 8.5 mg/dL (8.5-10.1); CARBON DIOXIDE 28.2 mmol/L (21.0-32.0); CHLORIDE - SERUM 103 mmol/L (98-107); GLUCOSE 109 mg/dL (74-106); POTASSIUM - SERUM 3.9 mmol/L (3.5-5.1); SODIUM 138 mmol/L (136-145); UREA NITROGEN 20 mg/dL (7-18); eGFR NON AFRICAN AMERICAN 79 mL/min (90-120)
[2017-12-14] VITALS (11 sets, daily range): BP systolic 100–120; BP diastolic 63–75
[2017-12-14 06:13] LABS: HEMATOCRIT 29.2 % (42.0-54.0); HEMOGLOBIN 9.6 g/dL (13.5-17.5); MCH 31.7 pg (26.0-34.0); MCHC 32.9 g/dL (31.0-37.0); MCV 96.4 fL (80.0-100.0); MEAN PLATELET VOLUME 9.6 fL (7.4-10.4); RBC 3.03 10x6/uL (4.20-6.10); RDW 13.2 % (11.5-14.5); WBC 10.7 10x3/uL (4.8-10.8)
[2017-12-14 06:22] LABS: ANION GAP 11.2 mmol/L (8-16); CALCIUM 8.4 mg/dL (8.5-10.1); CARBON DIOXIDE 28.6 mmol/L (21.0-32.0); CREATININE - SERUM 1.2 mg/dL (0.6-1.3); POTASSIUM - SERUM 3.8 mmol/L (3.5-5.1)
[2017-12-14] MEDS ORDERED: HEMOCYTE PLUS C1 CAP PO (08:25)
[2017-12-14] MEDS ORDERED: CORDARONE200 MG PO (08:25)
[2017-12-14] MEDS ORDERED: LOPRESSOR25 MG PO (08:26)
[2017-12-14] MEDS ORDERED: HYDROCODONE-APA1 TAB PO (08:31)
== END 2017-12-14 15:15 | disposition home or self-care (01) | DRG 236 ==
LOC: D.SDCHOLD 05:00 → D.CVICU 05:00 → D.SDCHOLD 07:30 → D.CVICU 13:49
PROVIDERS: Internal Medicine Cardiovascular Disease
PROC: 021109W Bypass Coronary Artery, Two Arteries from Aorta with Autologous Venous Tissue, Open Approach (ICD-10-PCS; 2017-12-07)
PROC: 06BP0ZZ Excision of Right Saphenous Vein, Open Approach (ICD-10-PCS; 2017-12-07)
PROC: 5A1221Z Performance of Cardiac Output, Continuous (ICD-10-PCS; 2017-12-07)
PROC: B245ZZ4 Ultrasonography of Left Heart, Transesophageal (ICD-10-PCS; 2017-12-07)
PROC: 02100AC Bypass Coronary Artery, One Artery from Thoracic Artery with Autologous Arterial Tissue, Open Approach (ICD-10-PCS; principal; 2017-12-07 07:30)
DX: I25.119 Atherosclerotic heart disease of native coronary artery with unspecified angina pectoris (principal); I10 Essential (primary) hypertension; E78.5 Hyperlipidemia, unspecified; I49.9 Cardiac arrhythmia, unspecified; Z87.891 Personal history of nicotine dependence; E66.3 Overweight; Z68.30 Body mass index [BMI] 30.0-30.9, adult

== ENCOUNTER 2017-12-30 06:37 | Emergency (ER) | payer MEDICARE, BC ==
[2017-12-08 07:52] VITALS: BMI 30.3
[~2017-12-30 06:37] MED LIST changes: +CORDARONE200 MG PO; +HEMOCYTE PLUS C1 CAP PO; +HYDROCODONE-APA1 TAB PO; +LOPRESSOR25 MG PO
[2017-12-30 07:19] LABS: BASOPHILS 0.3 % (0-2); EOSINOPHILS 2.8 % (0-7); HEMATOCRIT 38.4 % (42.0-54.0); HEMOGLOBIN 12.1 g/dL (13.5-17.5); IMMATURE GRANULOCYTES 0.3 % (0-5); LYMPHOCYTES 16.3 % (15-50); MCHC 31.5 g/dL (31.0-37.0); MCV 98.5 fL (80.0-100.0); MEAN PLATELET VOLUME 9.8 fL (7.4-10.4); MONOCYTES 8.7 % (2-11); NEUTROPHILS 71.6 % (40-80); PLATELET COUNT 332 10x3/uL (130-400); RDW 13.2 % (11.5-14.5); WBC 6.8 10x3/uL (4.8-10.8)
[2017-12-30 07:42] LABS: ALBUMIN 3.4 g/dL (3.4-5.0); ALKALINE PHOSPHATASE 152 U/L (46-116); ALT (SGPT) 28 U/L (10-68); BILIRUBIN - TOTAL 0.37 mg/dL (0.2-1.3); CALC OSMOLALITY 286 mosm/kg (275-300); CALCIUM 8.7 mg/dL (8.5-10.1); CARBON DIOXIDE 29.6 mmol/L (21.0-32.0); CHLORIDE - SERUM 106 mmol/L (98-107); CREATININE - SERUM 1.5 mg/dL (0.6-1.3); GLUCOSE 113 mg/dL (74-106); POTASSIUM - SERUM 4.6 mmol/L (3.5-5.1); PROTEIN - SERUM 7.1 g/dL (6.4-8.2); SODIUM 142 mmol/L (136-145); UREA NITROGEN 20 mg/dL (7-18); eGFR NON AFRICAN AMERICAN 49 mL/min (90-120)
[2017-12-30 07:54] LABS: CKMB 1.4 U/L (0.0-3.6); CREATINE KINASE 67 UL (21-232); MAGNESIUM - SERUM 2.1 mg/dL (1.8-2.4); PRO BNP 798 pg/mL (0-125)
[2017-12-30 07:55] LABS: TROPONIN-I < 0.017 ng/mL (0.000-0.060)
== END 2017-12-30 08:49 | disposition home or self-care (01) ==
LOC: D.ER 06:37
PROVIDERS: Family Medicine
DX: R55 Syncope and collapse (principal); I95.1 Orthostatic hypotension; R00.1 Bradycardia, unspecified; I45.10 Unspecified right bundle-branch block

== ENCOUNTER → 2017-12-31 10:44 | Outpatient (CLI) | payer MEDICARE, BC ==
[2017-12-08 07:52] VITALS: BMI 30.3
[2017-12-31 11:03] LABS: HEMATOCRIT 38.2 % (42.0-54.0); HEMOGLOBIN 12.1 g/dL (13.5-17.5); MCH 31.1 pg (26.0-34.0); MCHC 31.7 g/dL (31.0-37.0); MCV 98.2 fL (80.0-100.0); MEAN PLATELET VOLUME 9.7 fL (7.4-10.4); RBC 3.89 10x6/uL (4.20-6.10); RDW 13.1 % (11.5-14.5); WBC 6.7 10x3/uL (4.8-10.8)
[2017-12-31 11:13] LABS: ANION GAP 10.7 mmol/L (8-16); CALCIUM 8.5 mg/dL (8.5-10.1); CARBON DIOXIDE 30.6 mmol/L (21.0-32.0); CREATININE - SERUM 1.4 mg/dL (0.6-1.3); POTASSIUM - SERUM 4.3 mmol/L (3.5-5.1)
== END | disposition home or self-care (01) ==
LOC: D.LAB 08:30
PROVIDERS: Internal Medicine Cardiovascular Disease
DX: J91.8 Pleural effusion in other conditions classified elsewhere (principal); D64.9 Anemia, unspecified

== ENCOUNTER → 2018-03-11 13:32 | Outpatient (CLI) | payer MEDICARE, BC ==
[2017-12-08 07:52] VITALS: BMI 30.3
== END | disposition home or self-care (01) ==
LOC: D.RAD 12:15
DX: J90 Pleural effusion, not elsewhere classified (principal)

== ENCOUNTER → 2019-02-17 13:57 | Outpatient (CLI) | payer MEDICARE, BC ==
[2017-12-08 07:52] VITALS: BMI 30.3
== END | disposition home or self-care (01) ==
LOC: D.HCCARDIO 13:57
PROVIDERS: ATTEND Internal Medicine Cardiovascular Disease
DX: I25.10 Atherosclerotic heart disease of native coronary artery without angina pectoris (principal)

== ENCOUNTER → 2020-06-29 08:57 | Outpatient (CLI) | payer MEDICARE, BC ==
[2017-12-08 07:52] VITALS: BMI 30.3
== END | disposition home or self-care (01) ==
LOC: D.HCCECHO 08:57
PROVIDERS: ATTEND Internal Medicine Cardiovascular Disease
DX: I25.10 Atherosclerotic heart disease of native coronary artery without angina pectoris (principal)